=== PATIENT | male | born 1980 | race Caucasian/White ===

== ENCOUNTER 2019-03-14 06:10 | Emergency (ER) | payer SELFPAY ==
[~2019-03-14] VITALS: Ht 165.1 cm; Wt 83.9 kg
--- NOTE | 2019-03-14 06:10 | NUR ---
TO ER BED 14 AMBULATORY C/O BILATERAL HAND PAIN, BILATERAL FOOT PAIN. SI WITH PLAN TO JUMP IN FRONT OF A MOVING CAR. DENIES HI. PT DENIES DRUG USE. PT AAOX4 NO ACUTE DISTRESS NOTED, RESP EVEN AND UNLABORED. PT CALM AND COOPERATIVE AT THIS TIME. PT UNABLE TO PROVIDE URINE SAMPLE AT THIS TIME. PLACE PT ON HOSPITAL GOWN, ALL BELONGINGS REMOVED FROM ROOM. 1:1 SITTER AT BEDSIDE FOR PT SAFETY.
--- NOTE | 2019-03-14 06:29 | NUR ---
ER MD AT BEDSIDE TO EVAL PT WITH ORDERS RECIEVED. WILL CARRY OUT ORDERS.
[2019-03-14] MEDS ORDERED: SULFAMETH/TRIMETH 800/160 MG 1 UDTAB TABLET PO ONE (07:00)
[2019-03-14] MEDS ORDERED: CEPHALEXIN MONOHYDRATE 500 MG CAPSULE PO ONE ×2 (07:00→08:53)
[2019-03-14 07:06] LABS: BASOPHILS # (AUTO) 0.1 /CMM (0.0-0.2); EOSINOPHILS % (AUTO) 3.4 % (0.0-6.0); HEMATOCRIT 34 % (39-51); HEMOGLOBIN 11.3 g/dL (13.5-17.5); LYMPHOCYTES # (AUTO) 2.3 /CMM (0.8-4.8); LYMPHOCYTES % (AUTO) 39.7 % (20.0-44.0); MEAN CORPUSCULAR HGB CONC 33 g/dl (31.0-36.0); MEAN CORPUSCULAR VOLUME 86 fL (80-96); MONOCYTES # (AUTO) 0.8 /CMM (0.1-1.30); MONOCYTES % (AUTO) 13.3 % (2.0-12.0); NEUTROPHILS # (AUTO) 2.5 /CMM (1.8-8.9); NEUTROPHILS % (AUTO) 42.6 % (43.0-81.0); PLATELET COUNT (AUTO) 370 /CMM (150-450); RED BLOOD CELL COUNT(AUTO) 3.96 MIL/uL (4.5-6.0); WHITE BLOOD COUNT (AUTO) 5.9 K/uL (4.3-11.0)
[2019-03-14 07:18] LABS: CALCIUM, SERUM 8.1 mg/dL (8.5-10.1); CARBON DIOXIDE 31 mmol/L (21-32); CHLORIDE 102 mmol/L (98-107); CREATININE 0.8 mg/dL (0.6-1.3); GLUCOSE 106 mg/dL (74-106); SODIUM SERUM 139 mmol/L (136-145); UREA NITROGEN, BLOOD 12 mg/dL (7-18)
[2019-03-14 07:24] LABS: ALANINE AMINOTRANSFERASE 73 U/L (12-78); ALBUMIN 2.5 g/dL (3.4-5.0); ALCOHOL, BLOOD < 3 mg/dL (0-0); ALKALINE PHOSPHATASE 83 U/L (46-116); ASPARTATE AMINOTRANSFERASE 50 U/L (15-37); BILIRUBIN,DIRECT 0.1 mg/dL (0.0-0.2); BILIRUBIN,TOTAL 0.2 mg/dL (0.2-1.0); TOTAL PROTEIN, SERUM 5.8 g/dL (6.4-8.2)
[2019-03-14 07:25] LABS: ACETAMINOPHEN 0 ug/ml (10-30); SALICYLATE 1.2 mg/dL (2.8-20.0)
[2019-03-14] MEDS ORDERED: POTASSIUM CHLORIDE 20 MEQ TAB.PRT.SR PO ONE ×2 (08:00→08:53)
--- NOTE | 2019-03-14 08:20 | NUR ---
Social service consult requested by Dr. Padron for psychiatric evaluation and suicidal ideations with a plan. Upon chart review and MD notes, patient is a 38-year-old male who complains of bilateral hand and foot pain. Pt stated, he has had some suicidal ideation with thoughts of falling off of a adan. He is currently homeless. ACADEMIC SPECIALIST met with pt bedside and introduced herself and he role. Pt. is alert and oriented x 4. Pt. appears disheveled and unkempt. Pt states he is homeless and has been for a few weeks since he got kicked out of his recovery program due to using again. Pt. receives SSDI monthly. Pt. has history of substance abuse and states, " I use everything." Pt reports to last have used drugs a week ago. Tox screen is pending. Pt. has a psychiatric diagnosis of Bipolar and is non-compliant with his medications. Pt. has current suicidal ideations with a plan to jump off a adan. Pt. denies homicidal ideations and visual/auditory hallucinations at this time. Pt is requesting voluntary psychiatric admission to [facility]. ACADEMIC SPECIALIST faxed clinicals to [facility] intake. Awaiting acceptance. ED CRN Jeremías and Dr. Padron have been updated regarding pt's disposition.
[2019-03-14] MEDS ORDERED: SULFAMETH/TRIMETH 800/160 MG 1 UDTAB TABLET ONE (08:54)
--- NOTE | 2019-03-14 10:00 | NUR ---
pt states unable to provide urine sample atr this time. provided w/ oral hydration.
--- NOTE | 2019-03-14 10:53 | NUR ---
SHANNAN received a call from Demetri at [facility] intake requesting for medical clearance document for the pt. SHANNAN informed Brigido in ED to follow up.
--- NOTE | 2019-03-14 13:10 | NUR ---
URINE SAMPLE SENT TO LAB
[2019-03-14 13:16] LABS: APPEARANCE,URINE Clear (CLEAR); BILIRUBIN,URINE Negative (NEGATIVE); BLOOD, URINE Negative Ery/uL (NEGATIVE); COLOR,URINE Yellow (YELLOW); KETONES,URINE Negative (NEGATIVE); LEUKOCYTE ESTERASE ,URINE Negative (NEGATIVE); NITRITE, URINE Negative (NEGATIVE); PH,URINE 8.5 (5.0-8.0); PROTEIN,URINE Negative (NEGATIVE); UGLUCOSE Negative (NEGATIVE); UROBILINOGEN,URINE 0.2 EU/dL (0.2)
--- NOTE | 2019-03-14 13:16 | NUR ---
LUNCH TRAY PROVIDED. TOLERATING PO WELL.
--- NOTE | 2019-03-14 13:19 | NUR ---
SHANNAN received call from Demetri at [facility] intake. Pt. has been accepted to [facility]. Accepting Dr. Bourgeois/Dr. Guajardo. Report needs to be called to CRISTOFER Maloney . Addendum: 03/14/19 at 1322 by CLYDE GARCIA SHANNAN updated CRISTOFER Chase in ED with aforementioned information.
--- NOTE | 2019-03-14 14:04 | NUR ---
PATIENT ACCEPTED AT [facility]. ACCEPTING MD: DR AKBAR AND DR SPICER. FOR REPORT: MS HEBERT [phone]
--- NOTE | 2019-03-14 14:47 | NUR ---
report given [facility]
--- NOTE | 2019-03-14 15:03 | NUR ---
CALLED [facility] FOR TRANSPORT TO [facility]. ETA 1830 BUT WILL CALL BACK IF [facility] ETA. TRIP NUMBER [phone].
--- NOTE | 2019-03-14 15:05 | NUR ---
pt sleeping in bed. easily arousable. cooperative to staff. vss
--- NOTE | 2019-03-14 16:47 | NUR ---
REPORT GIVEN TO EMILEE GARCIA [facility]
--- NOTE | 2019-03-14 17:10 | NUR ---
Linda mcneil in [facility] - 03/14/19 at 1835 by SHAUNA AYAZ CALLED AND WILL BE HERE WITHIN THE HOUR.
--- NOTE | 2019-03-14 18:51 | NUR ---
CALLED AMBULMELINA. CREW IS LEAVING [facility] AND WILL BE DELAYED 20-30 MINUTES.
--- NOTE | 2019-03-14 19:36 | NUR ---
REPORT GIVEN TO MAVIS 27. PT STABLE FOR TRANSFER
[2019-03-14 19:37] VITALS: BP 110/97
== END 2019-03-14 19:39 ==
LOC: ER 06:13
DX: L03.011 Cellulitis of right finger (principal); F32.9 Major depressive disorder, single episode, unspecified; R45.851 Suicidal ideations; F10.10 Alcohol abuse, uncomplicated; F17.200 Nicotine dependence, unspecified, uncomplicated; Y90.0 Blood alcohol level of less than 20 mg/100 ml; Z59.0 Homelessness
CPT/HCPCS: 36415; 80048; 80076; 80305; 80307; 80329; 81001; 85025; 99285; G0480; 81000-TC